=== PATIENT | female | born 1945 | race Caucasian/White ===

== ENCOUNTER 2022-01-09 20:04 | Outpatient (RCR) | payer SELFPAY | END 2022-06-18 12:16 | disposition home or self-care (01) | LOC: MOW 20:04 | PROVIDERS: Visit Provider Family Medicine | DX: Z76.0 Encounter for issue of repeat prescription (principal) | CPT/HCPCS: S5170 ==

== ENCOUNTER 2022-02-14 17:42 | Emergency (ER) | payer MEDICARE, OTHER, SELFPAY ==
[2022-02-14 18:32] VITALS: BP 136/65; PULSE 101; RESP 22; TEMP 36.5; O2SAT 95; BMI 19.6
--- NOTE | 2022-02-14 19:01 | ED.GENADULT ---
HPI - General Adult General Time Seen by Provider: 19:02 <Colin Lomeli MD - Last Filed: 03/14/22 16:48> Date Seen: 02/14/22 <Colin Lomeli MD - Last Filed: 03/14/22 16:48> Chief complaint: Unspecified Complaint, Adult <Colin Lomeli MD - Last Filed: 03/14/22 16:48> Stated complaint: Possible Kidney Failure <Colin Lomeli MD - Last Filed: 03/14/22 16:48> Time Seen by Provider: 02/14/22 17:54 <Colin Lomeli MD - Last Filed: 03/14/22 16:48> Source: patient and RN notes reviewed <Colin Lomeli MD - Last Filed: 03/14/22 16:48> History of Present Illness HPI narrative: Bridget is a 76-year-old female who lives in [place] past medical history includes suspected scleroderma, dementia presents emerged department with friend with possible kidney failure. Patient has been seen in the past for swelling in her hands and feet tightening of her skin, along with bluish discoloration. She is also has joint pain, she was seen in [facility], she had a positive rheumatoid factor, positive Ro, negative SCL 70. She was started on CellCept. Patient does have chronic kidney disease which has been worsening. They suspected that she had systemic scleroderma. Patient's kidney function has been worsening in addition to elevated blood pressure readings, her sister has a history of renal transplant. Due to worsening symptoms she presents to [place] [facility] <Colin Lomeli MD - Last Filed: 03/14/22 16:48> Related Data Home medications: Home Medications Medication Instructions Recorded Confirmed acetaminophen 500 mg capsule 500 mg PO Q6H PRN 02/14/22 02/14/22 artificial tears(hypromellose) 0.5 2 drp ophthalmic (eye) QID PRN 02/14/22 02/14/22 % eye drops aspirin 81 mg tablet,delayed 81 mg PO DAILY 02/14/22 02/14/22 release cetirizine 10 mg tablet 10 mg PO DAILY PRN 02/14/22 02/14/22 cholecalciferol (vitamin D3) 1,250 50,000 unit PO QWEEK 02/14/22 02/14/22 mcg (50,000 unit) capsule cyanocobalamin (vitamin B-12) mcg .Route 02/14/22 1,000 mcg/mL injection syringe duloxetine 60 mg capsule,delayed mg PO 02/14/22 release famciclovir 250 mg tablet mg 02/14/22 furosemide 20 mg tablet mg 02/14/22 lisinopril 5 mg tablet mg 02/14/22 potassium chloride 10 mEq meq PO 02/14/22 tablet,extended release <Colin Lomeli MD - Last Filed: 03/14/22 16:48> Allergies/adverse reactions: Allergies Allergy/AdvReac Type Severity Reaction Status Date / Time No Known Drug Allergies Allergy Verified 02/15/22 06:44 <Colin Lomeli MD - Last Filed: 03/14/22 16:48> Review of Systems Status of ROS: Reports: 10 or more systems reviewed and unremarkable except as noted in History and below <Colin Lomeli MD - Last Filed: 03/14/22 16:48> [facility] Social History: Social History Smoking Status: Never smoker Do you use any of these nicotine containing products: None Second hand tobacco smoke exposure: No How often do you have a drink containing alcohol: never AUDIT-C Alcohol total score: 0 Non-prescribed substance use: denies use service: No <Colin Lomeli MD - Last Filed: 03/14/22 16:48> Exam Narrative: Exam Narrative: General: Sitting comfortably, anxious in appearance HEENT: Pupils equal round reactive to light, extraocular muscles intact Oropharynx is clear and moist Neck: Supple, full range of motion, no lymphadenopathy Lungs: Clear to auscultation bilaterally Heart: Normal sinus rhythm S1-S2 Abdomen: Soft, nontender, bowel sounds present Extremities: Mild swelling of bilateral hands as well as lower extremities, skin is thickened there is areas of scattered erythemic nodularity, CMS intact. Neuro: Dementia, baseline per friend Psych: Anxious in appearance <Colin Lomeli MD - Last Filed: 03/14/22 16:48> Const: Vital Signs, click to edit/add: Vital Signs - 24 hr 02/14/22 18:32 02/14/22 19:25 02/14/22 21:10 Temperature 97.7 F Pulse Rate [Left P ulse Oximeter] 101 H 90 Respiratory Rate 22 20 Respiratory Rate [ Head] 20 Blood Pressure [Ri ght Upper Arm] 136/65 134/64 Pulse Oximetry 95 99 Oxygen Delivery Me thod Room Air Room Air <Colin Lomeli MD - Last Filed: 03/14/22 16:48> Vital Signs, click to edit/add: Vital Signs - 24 hr 02/14/22 18:32 02/14/22 19:25 02/14/22 21:10 Temperature 97.7 F Pulse Rate [Left P ulse Oximeter] 101 H 90 Respiratory Rate 22 20 Respiratory Rate [ Head] 20 Blood Pressure [Ri ght Upper Arm] 136/65 134/64 Pulse Oximetry 95 99 Oxygen Delivery Me thod Room Air Room Air <Ozzy Avendano MD - Last Filed: 02/14/22 22:54> Course Course Hospital Course: 7:00 PM: AIDET, vitals are stable at this time, shows mild tachycardia and is very anxious for being here, she has been here in the past admitted to the hospital. Workup will include basic labs including CBC, CRP, sed rate, CMP, magnesium and phosphorus levels, will also obtain urinalysis, patient states she has been making urine. Denies any pain at this time. <Colin Lomeli MD - Last Filed: 03/14/22 16:48> Reevaluation(s) Reevaluation #1: Patient updated on her urinalysis and lab results, CBC was unchanged from previous, metabolic panel did show a sodium of 135, potassium 5.2, BUN of 63 with elevated creatinine at 3.5, phosphorus mildly elevated at 5.9, urinalysis did show 1+ protein, trace lysed blood. Plan to reach out to [facility], internal Medicine or possibly Nephrology for further recommendations <Colin Lomeli MD - Last Filed: 03/14/22 16:48> Time: 20:48 <Colin Lomeli MD - Last Filed: 03/14/22 16:48> Reevaluation #2: Reached to [facility], spoke with Nephrology, no beds available, this was discussed with patient and friend Geno. Plan would be to give patient IV high fluids and recheck BMP make sure improving renal function, patient does not require dialysis at this time, patient's vitals and labs otherwise are stable. Due to shift change transfer of care was given to Dr. Avendano, please see his note for final disposition. <Colin Lomeli MD - Last Filed: 03/14/22 16:48> Time: 21:31 <Colin Lomeli MD - Last Filed: 03/14/22 16:48> Vital Signs Vital signs: Initial Vital Signs Temperature 97.7 F 02/14/22 18:32 Temperature Source Temporal Artery Scan 02/14/22 18:32 Pulse Rate 101 H 02/14/22 18:32 Pulse Rhythm 02/14/22 18:32 Pulse Strength 3+ Normal 02/14/22 18:32 Respiratory Rate 22 02/14/22 18:32 Blood Pressure 136/65 02/14/22 18:32 Blood Pressure Mean 88 02/14/22 18:32 Blood Pressure Position Sitting 02/14/22 18:32 Pulse Oximetry 95 02/14/22 18:32 Oxygen Delivery Method 02/14/22 18:32 Vital Signs Temperature 97.7 F 02/14/22 18:32 Pulse Rate 101 H 02/14/22 18:32 Respiratory Rate 22 02/14/22 18:32 Blood Pressure 136/65 02/14/22 18:32 Pulse Oximetry 95 02/14/22 18:32 Oxygen Delivery Method 02/14/22 18:32 Temperature 97.7 F 02/14/22 18:32 Pulse Rate 98 02/14/22 21:29 Respiratory Rate 16 02/14/22 23:00 Blood Pressure 134/64 02/14/22 23:00 Pulse Oximetry 97 02/14/22 23:00 Oxygen Delivery Method 02/14/22 23:00 <Colin Lomeli MD - Last Filed: 03/14/22 16:48> Initial Vital Signs Temperature 97.7 F 02/14/22 18:32 Temperature Source Temporal Artery Scan 02/14/22 18:32 Pulse Rate 101 H 02/14/22 18:32 Pulse Rhythm 02/14/22 18:32 Pulse Strength 3+ Normal 02/14/22 18:32 Respiratory Rate 22 02/14/22 18:32 Blood Pressure 136/65 02/14/22 18:32 Blood Pressure Mean 88 02/14/22 18:32 Blood Pressure Position Sitting 02/14/22 18:32 Pulse Oximetry 95 02/14/22 18:32 Oxygen Delivery Method 02/14/22 18:32 Vital Signs Temperature 97.7 F 02/14/22 18:32 Pulse Rate 101 H 02/14/22 18:32 Respiratory Rate 22 02/14/22 18:32 Blood Pressure 136/65 02/14/22 18:32 Pulse Oximetry 95 02/14/22 18:32 Oxygen Delivery Method 02/14/22 18:32 Temperature 97.7 F 02/14/22 18:32 Pulse Rate 98 02/14/22 21:29 Respiratory Rate 16 02/14/22 23:00 Blood Pressure 134/64 02/14/22 23:00 Pulse Oximetry 97 02/14/22 23:00 Oxygen Delivery Method 02/14/22 23:00 <Ozzy Avendano MD - Last Filed: 02/14/22 22:54> Medical Decision Making MDM Narrative Medical decision making narrative: This patient was initially evaluated by Dr. Lomeli. See his notes for more information. He asked me to look after a repeat of the basic metabolic panel to see how her kidney function is doing after receiving a fluid challenge. The BUN and creatinine in have stayed consistent compared to the previous results. I went in to visit with the patient who stated that she wishes to return home. Her renal function is insufficient but not in failure where she needs to have dialysis at this time. She does have swelling and tightening of her skin in her hands suggestive of scleroderma. She states that she has been on a steroid for a brief time in the past and this seemed to help her quite a bit. She did receive a 1 time IV dose of Solu-Medrol 125 mg here. I stressed the importance of following up with Nephrology. She may also benefit from seeing a land use planner. <Ozzy Avendano MD - Last Filed: 02/14/22 22:54> Lab Data Labs: Lab Results 02/14/22 02/14/22 02/14/22 Range/Units 19:25 19:25 19:25 WBC 6.09 (4.50-11.00) K/uL RBC 3.45 L (4.00-5.20) m/uL Hgb 10.7 L (12.0-16.0) gm/dL Hct 33.1 (33.0-51.0) % MCV 96 (80-100) fL MCH 31 (26-34) pg MCHC 32 (32-36) gm/dL RDW Coeff of Mika 16.3 H (11.5-15.5) % Plt Count 302 (140-440) K/uL Neut % (Auto) 75.7 H (42.0-72.0) % Lymph % (Auto) 11.8 L (20-44) % [place] % (Auto) 9.7 (0.0-11.0) % Eos % (Auto) 2.1 (0.0-7.0) % Baso % (Auto) 0.5 (0.0-3.0) % Neut # (Auto) 4.60 (1.7-7.0) K/uL Lymph # (Auto) 0.70 L (0.90-2.90) K/uL [place] # (Auto) 0.60 (0.00-0.90) K/UL Eos # (Auto) 0.13 (0.00-0.50) K/uL Baso # (Auto) 0.03 (0.00-0.30) K/uL Abs Immat Gran (auto) 0.01 (0.00-0.30) K/uL ESR (2-20) mm/hr Sodium 134 L (135-149) mmol/L Potassium 5.2 H (3.6-5.1) mmol/L Chloride 105 (96-114) mmol/L Carbon Dioxide 22 (20-32) mmol/L BUN 63 H (7-30) mg/dL Creatinine 3.5 H (0.5-1.5) mg/dL Estimated Creat Clear 12.43 Estimated GFR 13 ml/min Glucose 119 H (60-115) mg/dL Calcium 8.4 (8.4-10.6) mg/dL Phosphorus 5.9 H (2.5-4.5) mg/dL Magnesium 2.3 (1.5-2.6) mg/dL Total Bilirubin 0.2 (0.1-1.5) mg/dL AST 19 (12-35) U/L ALT 7 (4-35) U/L Alkaline Phosphatase 73 (40-150) U/L C-Reactive Protein (0.5-1.0) mg/dL Total Protein 6.7 (6.0-8.3) g/dL Albumin 3.7 (3.3-5.0) g/dL Urine Color Yellow (Yellow) Urine Appearance Clear (Clear) Urine pH 5.5 (5.0-8.5) Ur Specific [place] 1.015 (1.000-1.030) Urine Protein 1+ A (Negative) Urine Glucose (UA) Negative (Negative) Urine Ketones Negative (Negative) Urine Blood Trace-lysed A (Negative) Urine Nitrite Negative (Negative) Urine Bilirubin Negative (Negative) Urine Urobilinogen 0.2 (0.2-1.0) Ur Leukocyte Esterase Negative (Negative) Urine RBC 0-2 (0-2) Urine WBC 2-5 (0-5) Ur Squamous Epith Cells Few (None-Few) Urine Bacteria None (None) 02/14/22 02/14/22 02/14/22 Range/Units 19:25 19:25 22:07 WBC (4.50-11.00) K/uL RBC (4.00-5.20) m/uL Hgb (12.0-16.0) gm/dL Hct (33.0-51.0) % MCV (80-100) fL MCH (26-34) pg MCHC (32-36) gm/dL RDW Coeff of Mika (11.5-15.5) % Plt Count (140-440) K/uL Neut % (Auto) (42.0-72.0) % Lymph % (Auto) (20-44) % [place] % (Auto) (0.0-11.0) % Eos % (Auto) (0.0-7.0) % Baso % (Auto) (0.0-3.0) % Neut # (Auto) (1.7-7.0) K/uL Lymph # (Auto) (0.90-2.90) K/uL [place] # (Auto) (0.00-0.90) K/UL Eos # (Auto) (0.00-0.50) K/uL Baso # (Auto) (0.00-0.30) K/uL Abs Immat Gran (auto) (0.00-0.30) K/uL ESR 23 H (2-20) mm/hr Sodium 133 L (135-149) mmol/L Potassium 4.6 (3.6-5.1) mmol/L Chloride 108 (96-114) mmol/L Carbon Dioxide 19 L (20-32) mmol/L BUN 64 H (7-30) mg/dL Creatinine 3.3 H (0.5-1.5) mg/dL Estimated Creat Clear 13.18 Estimated GFR 14 ml/min Glucose 123 H (60-115) mg/dL Calcium 7.6 L (8.4-10.6) mg/dL Phosphorus (2.5-4.5) mg/dL Magnesium (1.5-2.6) mg/dL Total Bilirubin (0.1-1.5) mg/dL AST (12-35) U/L ALT (4-35) U/L Alkaline Phosphatase (40-150) U/L C-Reactive Protein < 0.5 L (0.5-1.0) mg/dL Total Protein (6.0-8.3) g/dL Albumin (3.3-5.0) g/dL Urine Color (Yellow) Urine Appearance (Clear) Urine pH (5.0-8.5) Ur Specific [place] (1.000-1.030) Urine Protein (Negative) Urine Glucose (UA) (Negative) Urine Ketones (Negative) Urine Blood (Negative) Urine Nitrite (Negative) Urine Bilirubin (Negative) Urine Urobilinogen (0.2-1.0) Ur Leukocyte Esterase (Negative) Urine RBC (0-2) Urine WBC (0-5) Ur Squamous Epith Cells (None-Few) Urine Bacteria (None) <Colin Lomeli MD - Last Filed: 03/14/22 16:48> Lab Results 02/14/22 02/14/22 02/14/22 Range/Units 19:25 19:25 19:25 WBC 6.09 (4.50-11.00) K/uL RBC 3.45 L (4.00-5.20) m/uL Hgb 10.7 L (12.0-16.0) gm/dL Hct 33.1 (33.0-51.0) % MCV 96 (80-100) fL MCH 31 (26-34) pg MCHC 32 (32-36) gm/dL RDW Coeff of Mika 16.3 H (11.5-15.5) % Plt Count 302 (140-440) K/uL Neut % (Auto) 75.7 H (42.0-72.0) % Lymph % (Auto) 11.8 L (20-44) % [place] % (Auto) 9.7 (0.0-11.0) % Eos % (Auto) 2.1 (0.0-7.0) % Baso % (Auto) 0.5 (0.0-3.0) % Neut # (Auto) 4.60 (1.7-7.0) K/uL Lymph # (Auto) 0.70 L (0.90-2.90) K/uL [place] # (Auto) 0.60 (0.00-0.90) K/UL Eos # (Auto) 0.13 (0.00-0.50) K/uL Baso # (Auto) 0.03 (0.00-0.30) K/uL Abs Immat Gran (auto) 0.01 (0.00-0.30) K/uL ESR (2-20) mm/hr Sodium 134 L (135-149) mmol/L Potassium 5.2 H (3.6-5.1) mmol/L Chloride 105 (96-114) mmol/L Carbon Dioxide 22 (20-32) mmol/L BUN 63 H (7-30) mg/dL Creatinine 3.5 H (0.5-1.5) mg/dL Estimated Creat Clear 12.43 Estimated GFR 13 ml/min Glucose 119 H (60-115) mg/dL Calcium 8.4 (8.4-10.6) mg/dL Phosphorus 5.9 H (2.5-4.5) mg/dL Magnesium 2.3 (1.5-2.6) mg/dL Total Bilirubin 0.2 (0.1-1.5) mg/dL AST 19 (12-35) U/L ALT 7 (4-35) U/L Alkaline Phosphatase 73 (40-150) U/L C-Reactive Protein (0.5-1.0) mg/dL Total Protein 6.7 (6.0-8.3) g/dL Albumin 3.7 (3.3-5.0) g/dL Urine Color Yellow (Yellow) Urine Appearance Clear (Clear) Urine pH 5.5 (5.0-8.5) Ur Specific [place] 1.015 (1.000-1.030) Urine Protein 1+ A (Negative) Urine Glucose (UA) Negative (Negative) Urine Ketones Negative (Negative) Urine Blood Trace-lysed A (Negative) Urine Nitrite Negative (Negative) Urine Bilirubin Negative (Negative) Urine Urobilinogen 0.2 (0.2-1.0) Ur Leukocyte Esterase Negative (Negative) Urine RBC 0-2 (0-2) Urine WBC 2-5 (0-5) Ur Squamous Epith Cells Few (None-Few) Urine Bacteria None (None) 02/14/22 02/14/22 02/14/22 Range/Units 19:25 19:25 22:07 WBC (4.50-11.00) K/uL RBC (4.00-5.20) m/uL Hgb (12.0-16.0) gm/dL Hct (33.0-51.0) % MCV (80-100) fL MCH (26-34) pg MCHC (32-36) gm/dL RDW Coeff of Mika (11.5-15.5) % Plt Count (140-440) K/uL Neut % (Auto) (42.0-72.0) % Lymph % (Auto) (20-44) % [place] % (Auto) (0.0-11.0) % Eos % (Auto) (0.0-7.0) % Baso % (Auto) (0.0-3.0) % Neut # (Auto) (1.7-7.0) K/uL Lymph # (Auto) (0.90-2.90) K/uL [place] # (Auto) (0.00-0.90) K/UL Eos # (Auto) (0.00-0.50) K/uL Baso # (Auto) (0.00-0.30) K/uL Abs Immat Gran (auto) (0.00-0.30) K/uL ESR 23 H (2-20) mm/hr Sodium 133 L (135-149) mmol/L Potassium 4.6 (3.6-5.1) mmol/L Chloride 108 (96-114) mmol/L Carbon Dioxide 19 L (20-32) mmol/L BUN 64 H (7-30) mg/dL Creatinine 3.3 H (0.5-1.5) mg/dL Estimated Creat Clear 13.18 Estimated GFR 14 ml/min Glucose 123 H (60-115) mg/dL Calcium 7.6 L (8.4-10.6) mg/dL Phosphorus (2.5-4.5) mg/dL Magnesium (1.5-2.6) mg/dL Total Bilirubin (0.1-1.5) mg/dL AST (12-35) U/L ALT (4-35) U/L Alkaline Phosphatase (40-150) U/L C-Reactive Protein < 0.5 L (0.5-1.0) mg/dL Total Protein (6.0-8.3) g/dL Albumin (3.3-5.0) g/dL Urine Color (Yellow) Urine Appearance (Clear) Urine pH (5.0-8.5) Ur Specific [place] (1.000-1.030) Urine Protein (Negative) Urine Glucose (UA) (Negative) Urine Ketones (Negative) Urine Blood (Negative) Urine Nitrite (Negative) Urine Bilirubin (Negative) Urine Urobilinogen (0.2-1.0) Ur Leukocyte Esterase (Negative) Urine RBC (0-2) Urine WBC (0-5) Ur Squamous Epith Cells (None-Few) Urine Bacteria (None) <Ozzy Avendano MD - Last Filed: 02/14/22 22:54> Discharge Plan Discharge Clinical Impression: Acute on chronic renal insufficiency <Colin Lomeli MD - Last Filed: 03/14/22 16:48> Patient Disposition: Home, Self-Care <Colin Lomeli MD - Last Filed: 03/14/22 16:48> Condition: Improved <Colin Lomeli MD - Last Filed: 03/14/22 16:48> Instructions: Chronic Kidney Disease (ED) <Colin Lomeli MD - Last Filed: 03/14/22 16:48> Additional Instructions: Follow-up with primary physician. Additional assessment and treatment would be beneficial also by seeing a security threat analyst and land use planner. <Colin Lomeli MD - Last Filed: 03/14/22 16:48> Prescriptions: No Action duloxetine 60 mg capsule,delayed release(DR/EC) PO potassium chloride 10 mEq tablet extended release PO famciclovir 250 mg tablet lisinopril 5 mg tablet furosemide 20 mg tablet acetaminophen 500 mg capsule 500 mg PO Q6H PRN artificial tears(hypromellose) 0.5 % drops 2 drp ophthalmic (eye) QID PRN aspirin 81 mg tablet,delayed release (DR/EC) 81 mg PO DAILY cetirizine 10 mg tablet 10 mg PO DAILY PRN cholecalciferol (vitamin D3) 1,250 mcg (50,000 unit) capsule 50,000 unit PO QWEEK cyanocobalamin (vitamin B-12) 1,000 mcg/mL syringe .Route <Colin Lomeli MD - Last Filed: 03/14/22 16:48> Follow Up/Referrals: Provider,Not a Local [Primary Care Provider] - <Colin Lomeli MD - Last Filed: 03/14/22 16:48> Stand Alone Forms: MyHealth Info Instructions <Colin Lomeli MD - Last Filed: 03/14/22 16:48>
[2022-02-14 19:25] VITALS: RESP 20; O2SAT 98
--- NOTE | 2022-02-14 19:49 | ED.NURSE ---
per MD order, pt given sandwich and pudding. TV remote within reach of pt along with call light.
[2022-02-14 19:52] LABS: Basophils Absolute Auto 0.03 K/uL (0.00-0.30); Basophils Percent Auto 0.5 % (0.0-3.0); Eosinophils Absolute Auto 0.13 K/uL (0.00-0.50); Eosinophils Percent Auto 2.1 % (0.0-7.0); Hematocrit 33.1 % (33.0-51.0); Hemoglobin* 10.7 gm/dL (12.0-16.0); Immature Granulocytes Abs Auto 0.01 K/uL (0.00-0.30); Lymphocytes Percent Auto 11.8 % (20-44); Mean Corpuscular HGB Conc 32 gm/dL (32-36); Mean Corpuscular Hemoglobin 31 pg (26-34); Mean Corpuscular Volume 96 fL (80-100); Monocytes Percent Auto 9.7 % (0.0-11.0); Neutrophils Percent Auto 75.7 % (42.0-72.0); Platelet Count* 302 K/uL (140-440); RDW Coefficient of Variation % 16.3 % (11.5-15.5); Red Blood Count 3.45 m/uL (4.00-5.20); Slide Review Reflex No; White Blood Count* 6.09 K/uL (4.50-11.00)
[2022-02-14 19:54] LABS: Albumin* 3.7 g/dL (3.3-5.0)
[2022-02-14 19:55] LABS: Chloride* 105 mmol/L (96-114); Potassium* 5.2 mmol/L (3.6-5.1); Sodium* 134 mmol/L (135-149)
[2022-02-14 19:57] LABS: Aspartate Amino Transferase* 19 U/L (12-35); Bilirubin Total* 0.2 mg/dL (0.1-1.5); Carbon Dioxide* 22 mmol/L (20-32); Creatinine* 3.5 mg/dL (0.5-1.5); Est. Creatinine Clearance* 12.43; Estimated Glomerular Filt Rate 13 ml/min
[2022-02-14 19:58] LABS: Alanine Aminotransferase* 7 U/L (4-35); Alkaline Phosphatase* 73 U/L (40-150); Blood Urea Nitrogen* 63 mg/dL (7-30); Calcium* 8.4 mg/dL (8.4-10.6); Glucose* 119 mg/dL (60-115); Phosphorus* 5.9 mg/dL (2.5-4.5); Total Protein* 6.7 g/dL (6.0-8.3)
[2022-02-14 20:08] LABS: C Reactive Protein* < 0.5 mg/dL (0.5-1.0)
[2022-02-14 20:42] LABS: Appearance Urine Clear (Clear); Bilirubin Urine Negative (Negative); Blood Urine Trace-lysed (Negative); Color Urine Yellow (Yellow); Glucose Urine Negative (Negative); Ketones Urine Negative (Negative); Leukocyte Esterase Urine Negative (Negative); Nitrite Urine Negative (Negative); Protein Urine 1+ (Negative); Specific Gravity Urine 1.015 (1.000-1.030); Urobilinogen Urine 0.2 (0.2-1.0); pH Urine 5.5 (5.0-8.5)
[2022-02-14] MEDS: 0.9 % SODIUM CHLORIDE 1000 ml 1,000 ML IV (20:53)
[2022-02-14 21:10] VITALS: BP 134/64; PULSE 90; RESP 20; O2SAT 99
[2022-02-14 21:16] LABS: RBC Urine 0-2 (0-2); Squamous Epithelial Cell Urine Few (None-Few)
[2022-02-14 21:29] VITALS: BP 136/65; PULSE 98; RESP 18; O2SAT 98
[2022-02-14 21:47] LABS: Erythrocyte SedimentationRate* 23 mm/hr (2-20)
[2022-02-14 22:26] LABS: Chloride* 108 mmol/L (96-114); Potassium* 4.6 mmol/L (3.6-5.1); Sodium* 133 mmol/L (135-149)
[2022-02-14 22:28] LABS: Creatinine* 3.3 mg/dL (0.5-1.5); Est. Creatinine Clearance* 13.18; Estimated Glomerular Filt Rate 14 ml/min
[2022-02-14 22:29] LABS: Blood Urea Nitrogen* 64 mg/dL (7-30); Calcium* 7.6 mg/dL (8.4-10.6); Carbon Dioxide* 19 mmol/L (20-32); Glucose* 123 mg/dL (60-115)
[2022-02-14] MEDS: METHYLPREDNISOLONE SOD SUCC 62.5 MG/ML (125) 125 MG IVP (22:59)
[2022-02-14 23:00] VITALS: BP 134/64; RESP 16; O2SAT 97
--- NOTE | 2022-02-14 23:27 | ED.NURSE ---
friend arrived to drive pt home
[2022-02-15 14:58] LABS: Magnesium* 2.3 mg/dL (1.5-2.6)
== END 2022-02-14 23:30 | disposition home or self-care (01) ==
PROVIDERS: Student in an Organized Health Care Education/Training Program
DX: N17.9 Acute kidney failure, unspecified (principal)
CPT/HCPCS: 36415; 80048; 80053; 81003; 81015; 83735; 84100; 85025; 85651; 86140; 96374; 99283; 99284; J2930; J7030

== ENCOUNTER 2022-02-15 06:33 | Emergency (ER) | payer MEDICARE, OTHER, SELFPAY ==
[2022-02-15 06:44] VITALS: BP 162/78; PULSE 88; RESP 30; TEMP 36.7; O2SAT 94; BMI 20.4
--- NOTE | 2022-02-15 07:45 | ED.SKABFB ---
HPI - Skin/Abscess/Foreign Bdy General Time Seen by Provider: 07:15 Date Seen: 02/15/22 Chief complaint: Extremity Pain/Injury, Upper Stated complaint: Pain,inflammation on hands Time Seen by Provider: 02/15/22 07:14 Source: patient, RN notes reviewed and old records reviewed Mode of arrival: ambulatory Limitations: no limitations History of Present Illness HPI narrative: Bridget is a very pleasant 76-year-old female with a history chronic renal failure as well as possible dementia comes to the emergency room for the 2nd time in 24 hours for evaluation of itching on her arms and legs. According to notes there is a suspicion that patient actually has scleroderma as patient states her sister does. She states that out of the she was told that her kidneys were not working well. Yesterday she had a creatinine of 3.3. Nephrology was consulted and they did not feel that she was in need of dialysis at this point. Patient states that for over a month she has had increasing itching in her extremities. She states that started in of finger on her left hand then became worse on her arms and then her legs. She states that she itched all night long and has not been able to get to sleep because of it. She is not on any chronic narcotics, takes cetirizine and has no known liver problems. Patient denies fever or chills. She states she is worried that all of her scratching is going to cause an infection. Patient states she tries not to itch the area is a concern but is unable to stop. Patient is not entirely sure of past attempts at controlling the itching. She did have a steroid cream she is fairly sure of but it is not working. According to the papers that she brings me today she has also had a slow taper of prednisone for polymyalgia. She has recently tested positive for rheumatoid markers. Patient's primary Dr Strickland from the [facility] is retired, thus she saw Dr. Foster at her last visit. She does not know when her next visit is. Related Data Home Medications Medication Instructions Recorded Confirmed acetaminophen 500 mg capsule 500 mg PO Q6H PRN 02/14/22 02/14/22 artificial tears(hypromellose) 0.5 2 drp ophthalmic (eye) QID PRN 02/14/22 02/14/22 % eye drops aspirin 81 mg tablet,delayed 81 mg PO DAILY 02/14/22 02/14/22 release cetirizine 10 mg tablet 10 mg PO DAILY PRN 02/14/22 02/14/22 cholecalciferol (vitamin D3) 1,250 50,000 unit PO QWEEK 02/14/22 02/14/22 mcg (50,000 unit) capsule cyanocobalamin (vitamin B-12) mcg .Route 02/14/22 1,000 mcg/mL injection syringe duloxetine 60 mg capsule,delayed mg PO 02/14/22 release famciclovir 250 mg tablet mg 02/14/22 furosemide 20 mg tablet mg 02/14/22 lisinopril 5 mg tablet mg 02/14/22 potassium chloride 10 mEq meq PO 02/14/22 tablet,extended release Allergies Allergy/AdvReac Type Severity Reaction Status Date / Time No Known Drug Allergies Allergy Verified 02/15/22 06:44 Review of Systems Narrative: Patient denies fever or chills. She denies dysuria. She notes no recent falls or trauma. She self reports difficulty with memory. No abdominal pain nausea vomiting or diarrhea. [facility] Social History Do you use any of these nicotine containing products: None Second hand tobacco smoke exposure: No How often do you have a drink containing alcohol: never AUDIT-C Alcohol total score: 0 Non-prescribed substance use: denies use Exam Narrative: Exam Narrative: Further past medical history notes from ED visits: Patient had stated in the past she had a heart attack, abdominal pain, acute delirium, inadequate pain control, pelvic fracture, weakness, altered mental status, C diff colitis, bilateral lower extremity edema, DVT. Const: Vital Signs, click to edit/add: Vital Signs - 24 hr 02/15/22 06:44 Temperature 98.1 F Pulse Rate [Pulse Oximeter] 88 Respiratory Rate 30 H Blood Pressure [Ri ght Upper Arm] 162/78 H Pulse Oximetry 94 Oxygen Delivery Me thod Room Air Common normals: oriented x3 Exam limitations: behavioral limitations (Patient frequently interrupts and has some pressured speech.) General appearance: cooperative, well kempt and in distress (Moments of distress when she discusses how the itching is causing her to rosenbaum) Other: Patient is noted to have normal interactions but when describing her itching of the limbs over the past month and lack of sleep she suddenly becomes tearful but no tears are produced somewhat dramatic. She is having difficulty remembering what medication she should and should not be taking. She tells me that she stop taking any medications the did have refills because if she should keep taking them they should have had refills. She does not know when her next appointment with [facility] physician asJovanna HENMT: Common normals: normocephalic, head/scalp atraumatic and external nose normal Head and scalp: normocephalic and atraumatic Face and sinus: normal facial exam Nose: external nose normal Eye: Common normals: PERRL General eye: normal appearance of both eyes Pupil: PERRL Neck & C-Spine: Common normals: full ROM and supple Resp: Common normals: normal respiratory effort and clear to auscultation bilaterally Effort & inspection: able to speak in complete sentences Auscultation: clear to auscultation bilaterally Cardio: Common normals: regular rate and regular rhythm Rate: regular rate Rhythm: regular rhythm GI: Common normals: soft to palpation Palpation: soft : Common normals: no CVA tenderness Bladder/kidney exam: no CVA tenderness Back & Pelvis: Common normals: no CVA tenderness Extremity: Other: Extensor surfaces of all 4 limbs lower forearms as well as lower legs have increased redness and thickening of the skin with oneil of excoriation. I do not note that there excessively warm to the touch nor is there any drainage at this time. Hands show some tapered fingers with some slight edema. Neuro: Common normals: oriented x3 Psych: Common normals: cooperative Appearance: grossly normal and well kempt Activity/motor behavior: appropriate eye contact and restless Speech: rapid Thought content: normal thought content Memory/cognition: memory grossly impaired Insight: fair Judgement: fair Course Course Hospital Course: At this time review patient's vital signs and medical records. Patient was seen here previously for acute on chronic renal failure. Yesterday her creatinine was 3.5 improved to 3.2 after fluids. Initial potassium 5.2 improved to 4.6. Reevaluation(s) Reevaluation #1: Patient is noted to be feeling better after initial dose of prednisone. She is much more calm and conversive without pressured speech. We will hold off on any Vistaril treatment this time. Vital Signs Vital signs: Initial Vital Signs Temperature 98.1 F 02/15/22 06:44 Temperature Source Temporal Artery Scan 02/15/22 06:44 Pulse Rate 88 02/15/22 06:44 Respiratory Rate 30 H 02/15/22 06:44 Blood Pressure 162/78 H 02/15/22 06:44 Blood Pressure Mean 106 02/15/22 06:44 Blood Pressure Position Sitting 02/15/22 06:44 Pulse Oximetry 94 02/15/22 06:44 Oxygen Delivery Method 02/15/22 06:44 Vital Signs Temperature 98.1 F 02/15/22 06:44 Pulse Rate 88 02/15/22 06:44 Respiratory Rate 30 H 02/15/22 06:44 Blood Pressure 162/78 H 02/15/22 06:44 Pulse Oximetry 94 02/15/22 06:44 Oxygen Delivery Method 02/15/22 06:44 Temperature 98.1 F 02/15/22 06:44 Pulse Rate 88 02/15/22 06:44 Respiratory Rate 30 H 02/15/22 06:44 Blood Pressure 162/78 H 02/15/22 06:44 Pulse Oximetry 94 02/15/22 06:44 Oxygen Delivery Method 02/15/22 06:44 MDM - Skin/Abscess/Foreign Bdy MDM Narrative Medical decision making narrative: 1. Pruritus-certainly this could be secondary to scleroderma vs psychiatric causes vs renal failure. Patient had normal LFTs yesterday. Fortunately patient is noting improvement after prednisone 20 mg p.o.. At this time we do not feel we need to issue any hydroxyzine which would need to be renally dosed. Initial plan had been to use 12.5 mg t.i.d. . She would need to cut these tablets in half. S she would specifically need tablets that she would not be able to cut the capsules and half. Again, patient is improved after using prednisone. If patient is able to get by with only using prednisone that would be the optimal plan. If she does end up needing hydroxyzine, will need to discontinue certirizine. 2. Medication compliance-patient is noted to have discontinued some of her medications. She states that if they did not have refills she probably should be continuing them. I am not entirely sure that she does not need some assistance with her medications at home We have an appointment with Dr. Thornton at the [facility] at 1400 hours today to go over med list. Community paramedics may be of assistance in this area. If Dr. Thornton feels that he would like a community client service administrator to check on the patient he need only fill out a referral. 3. Questionable dementia-patient is describing memory loss and is self reporting this. She is much more calm after having received the prednisone and does not have the pressured speech. Her memory seems improved as well. Perhaps initial encounter behavior was secondary to the pruritus. 4. Chronic renal failure-patient presented to the ED yesterday with a creatinine of 3.5 which slightly improved to 3.3 with fluids. It is my understanding that patient has been dealing with chronic renal insufficiency.. My partner Dr. Dr. Lomeli did speak with Nephrology yesterday who did not feel that she was needing dialysis at that time. No labs were checked today as last labs were at 2200 hours last night less than 8 hours ago. Patient was to follow-up with primary clinic. 4. Disposition-patient is requesting to go home. She does appear to be safe to go home. Her behavior is much improved as is her memory. We did have clinical social work aide visit with patient today 2 to see if home health will be option but unfortunately she does not qualify. Patient is to return to the emergency room as needed. Medical Records Attestation: I reviewed the patient's medical records. Lab Data Attestation: I reviewed the patient's lab results. Discharge Plan Discharge Clinical Impression: Pruritus, Chronic kidney insufficiency Patient Disposition: Home, Self-Care Condition: Improved Additional Instructions: Follow-up with the [facility] this afternoon at 2pm. At that time they will make a decision whether or not to continue you on the medicine prednisone which she received today in the emergency room. If you have continued itching they may also consider the use of Vistaril or other medications which are helpful for itching but can be sedating and D to be at a lower dose because of your kidney function. Return to the emergency room as needed. Prescriptions: No Action duloxetine 60 mg capsule,delayed release(DR/EC) PO potassium chloride 10 mEq tablet extended release PO famciclovir 250 mg tablet lisinopril 5 mg tablet furosemide 20 mg tablet acetaminophen 500 mg capsule 500 mg PO Q6H PRN artificial tears(hypromellose) 0.5 % drops 2 drp ophthalmic (eye) QID PRN aspirin 81 mg tablet,delayed release (DR/EC) 81 mg PO DAILY cetirizine 10 mg tablet 10 mg PO DAILY PRN cholecalciferol (vitamin D3) 1,250 mcg (50,000 unit) capsule 50,000 unit PO QWEEK cyanocobalamin (vitamin B-12) 1,000 mcg/mL syringe .Route Follow Up/Referrals: Provider,Not a Local [Primary Care Provider] - Stand Alone Forms: [employer] Info Instructions
[2022-02-15] MEDS: predniSONE 20 MG TABLET PO (08:14)
[2022-02-15 09:20] VITALS: BP 137/82; PULSE 90; RESP 20; O2SAT 95
== END 2022-02-15 09:33 | disposition home or self-care (01) ==
PROVIDERS: Emergency Provider Family Medicine
DX: N17.9 Acute kidney failure, unspecified (principal); R41.3 Other amnesia; L29.9 Pruritus, unspecified
CPT/HCPCS: 99283; 99284; J7512

== ENCOUNTER 2022-05-28 18:00 | Outpatient (CLI) | payer MEDICARE, OTHER, SELFPAY | END 2022-05-28 18:01 | disposition home or self-care (01) | LOC: AMB 06-23 22:32 | PROVIDERS: Visit Provider Family Medicine | DX: R53.1 Weakness (principal) | CPT/HCPCS: A0998 ==

== ENCOUNTER 2022-06-05 15:41 | Outpatient (CLI) | payer MEDICARE, OTHER, SELFPAY | END 2022-06-05 15:42 | disposition home or self-care (01) | LOC: AMB 06-29 13:53 | PROVIDERS: Visit Provider Family Medicine | DX: R53.1 Weakness (principal) | CPT/HCPCS: A0998 ==